=== PATIENT | male | born 1985 | race Caucasian/White ===

== ENCOUNTER 2022-05-07 09:50 | Emergency (ER) | payer OTHER, SELFPAY ==
[2022-05-07] VITALS (25 sets, daily range): BP systolic 117–142; BP diastolic 73–91; PULSE 80–103; RESP 15–26; TEMP 36.6; O2SAT 95–100
--- NOTE | ~2022-05-07 | CT_ITS ---
EXAMINATION: CT brain wo con DATE: 05/07/2022 10:46 INDICATION: Syncopal episode today. Lightheadedness, dizziness. TECHNIQUE: Computed tomography (CT) of the head was performed without intravenous contrast. The mA wa s adjusted according to patient size. Iterative reconstruction technique was employed. Exam dose: 60 5.33 mGy-cm total exam DLP. COMPARISON: None FINDINGS: No intracranial mass lesion or hemorrhage or cerebrovascular accident. No midline shift or mass effect. Normal ventricular size. Normal rene-white matter differentiation. No subdural or epidur al hematoma is detected. No fracture or bone destruction of the cranial vault. Included paranasal sinuses and mastoid air cell s appear normal. IMPRESSION: Negative Reviewed, dictated and finalized at [facility]. Reviewed, dictated and finalized at [facility]. IMPRESSION: Negative
--- NOTE | 2022-05-07 09:53 | ECG_ITS ---
Measurements Intervals [place] Rate: 80 P: 27 MT: 151 QRS: 5 QRSD: 104 T: 30 QT: 392 QTc: 455 Interpretive Statements SINUS RHYTHM DELAYED PRECORDIAL R/S TRANSITION BORDERLINE ECG NO PREVIOUS ECG AVAILABLE FOR COMPARISON Electronically Signed On 05-07-2022 10:12:52 CDT by Shawn Cochran D.O.
--- NOTE | 2022-05-07 10:10 | ED.SYNCOPE ---
HPI - Syncope General Chief Complaint: Syncope Stated Complaint: fainted at work Time Seen by Provider: 05/07/22 09:53 Source: patient Mode of arrival: ambulatory Limitations: no limitations History of Present Illness HPI narrative: Patient is a 36-year-old male who presents to the ED with report of syncope. Patient reports he was at work today and urinating when he states his right leg became slightly tingly. He then developed what he describes as halos or tunnel vision bilaterally. He began feeling dizzy and lightheaded and then had a near - syncopal episode. Patient does not think he fully lost consciousness. He states he slowly lowered himself to the ground. He did not hit his head. Patient felt very weak, nauseous, lightheaded afterwards, which prompted his presentation. Patient denies history of previous syncopal episodes. He states he has otherwise felt fine recently. No recent cough or cold symptoms, fevers, no current vision changes, headache. No vomiting, abdominal pain, chest pain, difficulty breathing. Related Data Home Medications Medication Instructions Recorded Confirmed cetirizine 10 mg capsule (Zyrtec) 10 mg PO DAILY PRN 09/05/21 09/05/21 doxycycline monohydrate 40 mg 40 mg PO DAILY 09/05/21 09/05/21 capsule,immediate - delay release (Oracea) ivermectin 1 % topical cream 1 applic topical DAILY 09/05/21 09/05/21 (Soolantra) Allergies Allergy/AdvReac Type Severity Reaction Status Date / Time cat dander Allergy Unknown Other Verified 04/05/22 14:39 Review of Systems Review of Systems: CONSTITUTIONAL: Denies fever, chills, or sweats. EYES: See HPI. ENT: Denies rhinorrhea, congestion, sore throat. CARDIOVASCULAR: Denies chest pain. RESPIRATORY: Denies cough or dyspnea. GASTROINTESTINAL: See HPI. MUSCULOSKELETAL: Denies back pain, joint pain, or myalgia. NEUROLOGIC: See HPI. All systems reviewed & are unremarkable except as noted in HPI and below PMFSH Past Medical History Medical History Back pain, acute Lumbar radiculopathy Right lower quadrant abdominal pain Rosacea Thrush Surgical History Surgical History Hx of wisdom tooth extraction Family History Family History Father Hypertension Family history of gastrointestinal disorder Family history of colonic diverticulitis Mother Family history of osteoarthritis Family history of irritable bowel syndrome Grandparent Family history of heart disease in male family member before age 55 Lung cancer Other Diabetes mellitus Family history of rheumatoid arthritis Social History Social History Smoking status: Never smoker Alcohol intake: current Drinks per week: 3 Alcohol use details: drinks socially on the weekends Substance use: never Substance use type: does not use Living arrangements: alone Occupation/Education: occupation 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 HEAD: Normocephalic, atraumatic. EYES: PERRL/EOMI, conjunctivae clear bilaterally. No nystagmus. NECK: Supple. No adenopathy, no masses. No midline spinal tenderness. RESPIRATORY: Airway patent, respirations nonlabored. Clear to auscultation bilaterally, no rales, rhonchi, wheezing. CARDIOVASCULAR: Regular rate and rhythm without murmurs, rubs, or gallops. Peripheral pulses 2+ and equal bilaterally. ABDOMINAL: Soft, nontender, nondistended, no hepatosplenomegaly. Normoactive BS. MUSCULOSKELETAL: Moves all extremities. Strength/ROM intact without gross deformities or TTP. No edema. No calf tenderness. No midline thoracic or lumbar spinal tenderness. SK
[2022-05-07 10:14] LABS: Basophils Absolute Auto 0.1 K/mm3 (0.0-0.1); Basophils Percent Auto 0.4 % (0.2-1.2); Eosinophils Absolute Auto 0.2 K/mm3 (0-0.3); Eosinophils Percent Auto 1.6 % (0-4.4); Hematocrit 46.6 % (42.0-52.0); Hemoglobin 16.4 g/dL (14.0-18.0); Immature Granulocyte Absolute 0.14 K/mm3 (0.00-0.031); Immature Granulocyte Percent A 1.2 % (0-0.5); Lymphocytes Absolute Auto 3.21 K/mm3 (0.9-3.2); Lymphocytes Percent Auto 28.3 % (18.3-44.2); Mean Corpuscular HGB Conc 35.2 g/dl (32-36); Mean Platelet Volume 11.7 fl (7.4-10.4); Monocytes Percent Auto 8.4 % (2.6-8.5); Neutrophils Absolute Auto 6.8 K/mm3 (1.3-6.7); Neutrophils Percent Auto 60.1 % (45.5-73.1); Platelet Count Result 239 k/mm3 (150-375); Red Blood Count 5.12 M/mm3 (4.6-6.20); Red Cell Distribution Width 11.6 % (11.5-14.5); White Blood Count 11.3 K/mm3 (4.5-10.0)
[2022-05-07 10:28] LABS: Alanine Aminotransferase 36 U/L (6-50); Albumin Level 4.8 g/dL (3.5-5.1); Alkaline Phosphatase 97 U/L (38-126); Anion Gap 10 mmol/L (8-16); Aspartate Amino Transferase 30 U/L (17-59); Bilirubin,Total 0.6 mg/dL (0.2-1.3); Blood Urea Nitrogen 13 mg/dL (9-20); Calcium 8.9 mg/dL (8.4-10.2); Carbon Dioxide 27 mmol/L (22-30); Chloride 102 mmol/L (98-107); Estimated CRCL calculation 134 ml/min; Estimated Glomerular Filt Rate > 60; Glucose 116 mg/dL (65-110); Magnesium 2.1 mg/dL (1.6-2.3); Potassium 3.4 mmol/L (3.4-5.0); Sodium 139 mmol/L (137-145)
[2022-05-07 10:39] LABS: Troponin I < 0.012 ng/mL (0.000-0.034)
[2022-05-07] MEDS: ONDANSETRON INJ 4 MG/2 ML VIAL IV PUSH (10:49)
[2022-05-07] MEDS: SODIUM CHLORIDE 0.9% IV 1,000 ML 999 ML IV CONT ×2 (10:49→13:01)
[2022-05-07 11:37] LABS: Appearance Urine Clear (Clear); Bilirubin Urine Negative (Negative); Blood Urine Negative (Negative); Color Urine Yellow (Yellow); Glucose Urine UA Negative (Negative); Ketones Urine Negative (Negative); Leukocyte Esterase Ur Negative LEU/UL (Negative); Nitrate Urine Negative (Negative); Protein Urine Negative (Negative); Specific Grav Ur 1.012 (1.001-1.035); Urobilinogen Urine 0.2 mg/dL (<2.0)
[2022-05-07 11:44] LABS: Add Urine Microscopic? NO
== END 2022-05-07 14:19 | disposition home or self-care (01) ==
PROVIDERS: Emergency Provider Physician Assistant
DX: R55 Syncope and collapse (principal); R94.31 Abnormal electrocardiogram [ECG] [EKG]
CPT/HCPCS: 36415; 70450; 80053; 81003; 83735; 84484; 85025; 93005; 96361; 96374; 99284; J2405; J7030